=== PATIENT | female | born 1950 | race Caucasian/White ===

== ENCOUNTER 2021-10-22 13:00 | Emergency (ER) | payer MEDICARE, OTHER ==
[~2021-10-22] VITALS: Ht 147.3 cm; Wt 63.5 kg
[~2021-10-22 13:00] MED LIST: BENADRYL 50MG C50 MG PO; MAGNESIUM500 MG PO; MEDDOSEPAK PO; MIRALAX3350 N1 PO; PRILOSEC20 MG PO; STOOL SOFTNR PO; VITAMIN D5000 UNIT; [UNRECOGNIZED DRUG - OTHER]
[2021-10-22 13:04] VITALS: BP 147/86
[2021-10-22 13:30] VITALS: BP 134/66
[2021-10-22 14:00] VITALS: BP 145/75
[2021-10-22] MEDS ORDERED: KEFLEX500 MG PO (14:17)
[2021-10-22 14:23] VITALS: BP 145/75
== END 2021-10-22 14:44 | disposition home or self-care (01) ==
LOC: ED 13:00
PROC: 0HQLXZZ Repair Left Lower Leg Skin, External Approach (ICD-10-PCS; principal; 2021-10-22)
DX: S81.812A Laceration without foreign body, left lower leg, initial encounter (principal); I83.92 Asymptomatic varicose veins of left lower extremity; W26.0XXA Contact with knife, initial encounter; Y93.E9 Activity, other interior property and clothing maintenance; Y92.89 Other specified places as the place of occurrence of the external cause